=== PATIENT | male | born 1980 | race Caucasian/White ===

== ENCOUNTER 2023-06-18 10:40 | Emergency (ER) | payer BC, MEDICAID, SELFPAY ==
[2023-06-18 10:44] VITALS: BP 152/84; PULSE 87; RESP 16; TEMP 36.6; O2SAT 95
--- NOTE | 2023-06-18 10:56 | ECG_ITS ---
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 Measurements Intervals [place] Rate: 66 P: 53 [place]: 159 QRS: 32 QRSD: 97 T: 2 QT: 379 QTc: 398 Interpretive Statements SINUS RHYTHM No previous ECG available for comparison Electronically Signed On 06-18-2023 17:00:43 CDT by Michele Wan M.D. [id number]
--- NOTE | 2023-06-18 11:59 | CT_ITS ---
WS: [id number] CT HEAD TECHNIQUE: Noncontrast CT of the head obtained from the skullbase to the vertex. CLINICAL INFORMATION: dizziness COMPARISON: None. DLP: 1158.[address] scans at [facility] use at least one of these dose optimization techniques: automated e xposure control; mA and/or kV adjustment per patient size (includes targeted exams where dose is matc hed to clinical indication); or iterative reconstruction. FINDINGS: No evidence of intracranial hemorrhage or mass effect. Ventricular system and basal cisterns are sousa nt. No extra-axial fluid collections. No evidence of mass or mass effect. Normal triana-white different iation. Paranasal sinuses and mastoid air cells are well aerated. .Normal visualized soft tissues. IMPRESSION: 1. No evidence of intracranial hemorrhage or mass effect. 2. No acute intracranial findings.
--- NOTE | 2023-06-18 12:01 | W.ED.NAVMDI ---
HPI - Nausea/Vomiting/Diarrhea General: Chief complaint: Nausea/Vomiting/Diarrhea Stated complaint: N/V, light headed Time Seen by Provider: 06/18/23 11:41 Source: patient Mode of arrival: ambulatory Limitations: no limitations History of Present Illness: 43-year-old male states he has been having some dizziness and nausea since Wednesday he was seen at [facility] ER was diagnosed with tooth infection started on Augmentin states he started having vomiting and diarrhea of the Augmentin stopped yesterday states he still had some lightheadedness and just not feeling well. 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 Associated nausea: Yes Associated symtoms: Reports nausea; Denies chest pain, dysuria or headache(s) Review of Systems Const: Denies: fever(s), chills, body aches or change in appetite Eyes: Denies: blurry vision or eye discomfort ENMT: Denies: throat pain or dental pain Card: Denies: chest pain Resp: Denies: dyspnea GI: Reports: nausea and vomiting; Denies: abdominal pain or diarrhea : Denies: dysuria Musc: Denies: neck pain or back pain Skin/Breast: Denies: rash Neuro: Denies: headache(s) PFSH ED PFSH: Medical History Hypothyroidism Alice's disease Surgical History No history of previous surgery Family History Grandfather Diabetes Father No problems noted. Family/Other Hypothyroidism Social History Smoking and tobacco/nicotine status: heavy tobacco/nicotine user smokeless tobacco Smokeless tobacco user: chewing tobacco Smokeless tobacco details: 3/4 a can a day Second hand smoke exposure: Yes Alcohol intake: current Alcohol type: beer Additional social history: chews 1 can of tobacco a day Physical Exam Const: COMMON NORMALS: no acute distress, patient oriented x3 and healthy appearing HENMT: COMMON NORMALS: normocephalic and atraumatic HEAD & SCALP: normocephalic and atraumatic Eye: COMMON NORMALS: Equal, round and reactive pupils present and EOMs intact bilaterally PUPIL: Yes Equal, round and reactive pupils present Neck/C-Spine: COMMON NORMALS: full ROM and supple Chest: COMMONS NORMALS: normal inspection of the chest and normal palpation of entire chest wall Resp: COMMON NORMALS: normal respiratory effort, No retractions, No use of accessory muscles and clear to auscultation bilaterally AUSCULTATION: clear to auscultation bilaterally Cardio: COMMON NORMALS: regular rate, regular rhythm and No murmurs present (Cardio) RATE: regular rate RHYTHM: regular rhythm GI: COMMON NORMALS: Normal to inspection, nondistended, normoactive bowel sounds present, Soft to palpation, non-tender and no masses PALPATION: Yes Soft to palpation Extremity: COMMON NORMALS: normal to inspection and full ROM Neuro: COMMON NORMALS: patient oriented x3, moves all extremities and no focal motor deficits Psych: COMMON NORMALS: mental status grossly normal, Normal thought process present and cooperative THOUGHT PROCESS: Normal thought process present Skin: COMMON NORMALS: no rashes or lesions noted and no wounds GENERAL SKIN EXAM: no rashes or lesions noted Course Vital Signs: Vital signs: Vital Signs Temperature 97.9 F 06/18/23 10:44 Pulse Rate 82 06/18/23 13:27 Respiratory Rate 16 06/18/23 10:44 Blood Pressure 127/85 06/18/23 13:27 Pulse Oximetry 98 06/18/23 13:27 Oxygen Delivery Me thod Room Air 06/18/23 13:13 MDM - Nausea/Vomiting/Diarrhea Medical Decision Making Patient presents here with vomiting diarrhea also had some dizziness he is well-appearing here head CT is normal blood works normal placement Zofran he is to stop his Augmentin we will start him on Keflex for his dental infection follow-up with PCP return if worsening he understands agrees plan Medical Records I reviewed the patient's medical records. Lab Data I reviewed the patient's lab results. 06/18/23 12:43 06/18/23 11:37 Laboratory Results WBC 11.62 10^3/uL (3.29-11.43) H 06/18/23 12:43 Corrected WBC Cancelled 06/18/23 11:37 RBC 5.16 10^6/uL (3.85-5.65) 06/18/23 12:43 Hgb 15.00 g/dL (11.27-16.99) 06/18/23 12:43 Hct 45.8 % (37-53) 06/18/23 12:43 MCV 88.8 fl (82-101) 06/18/23 12:43 MCH 29.1 pg (27-33) 06/18/23 12:43 MCHC 32.8 g/dL (30-55) 06/18/23 12:43 RDW 12.4 % (12.1-15.1) 06/18/23 12:43 Plt Count 311 10^3/cmm (157-399) 06/18/23 12:43 MPV 10.0 fL (7.4-10.4) 06/18/23 12:43 Gran % Cancelled 06/18/23 11:37 Neut % (Auto) 77.9 % 06/18/23 12:43 Lymph % (Auto) 15.1 % 06/18/23 12:43 [place] % (Auto) 5.1 % 06/18/23 12:43 Eos % (Auto) 1.2 % 06/18/23 12:43 Baso % (Auto) 0.4 % 06/18/23 12:43 Neut # (Auto) 9.04 10^3/uL (1.8-7.7) H 06/18/23 12:43 Lymph # (Auto) 1.8 10^3/uL (0.8-4.8) 06/18/23 12:43 [place] # (Auto) 0.6 10^3/uL (0.2-0.9) 06/18/23 12:43 Eos # (Auto) 0.1 10^3/uL (0.0-0.8) 06/18/23 12:43 Baso # (Auto) 0.1 10^3/uL (0.0-0.1) 06/18/23 12:43 Absolute Gran (auto) Cancelled 06/18/23 11:37 Nucleated RBC % (auto) 0 % 06/18/23 12:43 Nucleated RBCs # 0.0 /100WBC 06/18/23 12:43 Sodium 140 mmol/L (136-145) 06/18/23 11:37 Potassium 4.1 mmol/L (3.5-5.1) 06/18/23 11:37 Chloride 105 mmol/L (98-107) 06/18/23 11:37 Carbon Dioxide 26 mmol/L (22-29) 06/18/23 11:37 Anion Gap 13.1 (5-19) 06/18/23 11:37 BUN 15 mg/dL (6-20) 06/18/23 11:37 Creatinine 0.8 mg/dL (0.7-1.2) 06/18/23 11:37 GFR Calculation 104.5 mL/min (90-130) 06/18/23 11:37 Glucose 99 mg/dL (65-115) 06/18/23 11:37 Calculated Osmolality 291 mOsm/kg (285-295) 06/18/23 11:37 Calcium 9.6 mg/dL (8.5-10.5) 06/18/23 11:37 Total Bilirubin 0.9 mg/dL (0.15-1.2) 06/18/23 11:37 AST 18 U/L (0-40) 06/18/23 11:37 ALT 14 U/L (0-41) 06/18/23 11:37 Alkaline Phosphatase 88 U/L (40-130) 06/18/23 11:37 Total Protein 7.8 g/dL (6.6-8.7) 06/18/23 11:37 Albumin 4.9 g/dL (3.5-5.2) 06/18/23 11:37 Globulin 2.9 g/dL (1.3-4.6) 06/18/23 11:37 Lipase 20 U/L (13-60) 06/18/23 11:37 All radiology interpretation(s) finalized by discharge EKG Data EKG 1: I personally reviewed and interpreted this EKG as follows: EKG interpretation date: 06/18/23 EKG interpretation time: 12:11 Interpretation: nsr hr [address] or t wave abnormalities qrs 97 qtc 392 Discharge Plan Discharge Patient Disposition: Home Clinical Impression: Vomiting, Toothache Condition: Stable Prescriptions: New cephalexin 500 mg capsule 500 mg PO TID 7 Days Qty: 21 0RF ondansetron 4 mg tablet,disintegrating 4 mg PO Q6H PRN (Reason: nausea and vomiting) Qty: 14 0RF No Action valsartan 80 mg tablet 80 mg PO QAM amoxicillin-pot clavulanate 875-125 mg tablet 1 tab PO BID Rx Instructions: for 10 days (rx filled 06/15/23) Discharge Orders: Discharge ED (Routine); Ordered 06/18/23 Ordered By: Scooter Bolaños Referrals: Marielos Linder DO [Primary Care Provider] - 1-3 days Discharge Diet: Advance as tolerated Discharge Activity: Resume usual activity Patient Instructions: Acute Nausea and Vomiting (ED) Coding Level of Care Code 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
[2023-06-18 12:05] LABS: Alanine Aminotransferase 14 U/L (0-41); Albumin Level 4.9 g/dL (3.5-5.2); Alkaline Phosphatase 88 U/L (40-130); Anion Gap 13.1 (5-19); Aspartate Amino Transferase 18 U/L (0-40); Blood Urea Nitrogen 15 mg/dL (6-20); Calcium 9.6 mg/dL (8.5-10.5); Carbon Dioxide 26 mmol/L (22-29); Chloride 105 mmol/L (98-107); Creatinine Clr Calc Pharmacy 131.8527; Globulin 2.9 g/dL (1.3-4.6); Glomerular Filtration Rate 104.5 mL/min (90-130); Glucose 99 mg/dL (65-115); Lipase 20 U/L (13-60); Osmolality Calculated 291 mOsm/kg (285-295); Potassium 4.1 mmol/L (3.5-5.1); Sodium 140 mmol/L (136-145); Total Bilirubin 0.9 mg/dL (0.15-1.2); Total Protein 7.8 g/dL (6.6-8.7)
--- NOTE | 2023-06-18 12:20 | PC.PHAR ---
pt states he takes care of his own medications-pt states he stop taking his augmentin 875-125mg bid on wed06/16/23 rx filled 06/15/23 10d/s-pt states he takes no otc meds
[2023-06-18] MEDS: sodium chloride 0.9% 1,000 ML 999 ML IV (12:35)
[2023-06-18 13:00] LABS: Basophils # 0.1 10^3/uL (0.0-0.1); Basophils % 0.4 %; Eosinophils # 0.1 10^3/uL (0.0-0.8); Eosinophils % 1.2 %; Hematocrit 45.8 % (37-53); Lymphocytes # 1.8 10^3/uL (0.8-4.8); Lymphocytes % 15.1 %; Mean Corpuscular HGB Conc 32.8 g/dL (30-55); Mean Corpuscular Hemoglobin 29.1 pg (27-33); Mean Corpuscular Volume 88.8 fl (82-101); Monocytes # 0.6 10^3/uL (0.2-0.9); Monocytes % 5.1 %; Neutrophils # 9.04 10^3/uL (1.8-7.7); Neutrophils % 77.9 %; Nucleated Red Blood Cells % 0 %; Platelet Count 311 10^3/cmm (157-399); Red Blood Count 5.16 10^6/uL (3.85-5.65); Red Cell Distribution Width 12.4 % (12.1-15.1); White Blood Count 11.62 10^3/uL (3.29-11.43)
[2023-06-18 13:13] VITALS: BP 135/86; PULSE 88; O2SAT 97
[2023-06-18 13:27] VITALS: BP 127/85; PULSE 82; O2SAT 98
== END 2023-06-18 13:28 | disposition home or self-care (01) ==
PROVIDERS: Emergency Provider Emergency Medicine; PCP Family Medicine
DX: R11.11 Vomiting without nausea (principal); K08.89 Other specified disorders of teeth and supporting structures; F17.220 Nicotine dependence, chewing tobacco, uncomplicated
CPT/HCPCS: 36415; 70450; 80053; 83690; 85025; 93005; 96360; 99285; J7030

== ENCOUNTER 2024-01-15 09:50 | Emergency (ER) | payer OTHER, SELFPAY ==
[2024-01-15 09:57] VITALS: BP 165/108; PULSE 79; RESP 17; TEMP 36.9; O2SAT 97; BMI 27.3
--- NOTE | 2024-01-15 10:13 | XRR_ITS ---
PROCEDURE INFORMATION: Exam: XR Chest Exam date and time: 01/15/2024 11:02 AM Age: 43 years old Clinical indication: Pain; Chest pressure; Patient HX: PT states the last couple days PT states he has been anxious and on edge. PT states a doctor tried to put him on medication for anxiety before but he had side effects. PT states he feels like his whole body wants to clench up. ; Additional info: Cp TECHNIQUE: Imaging protocol: Radiologic exam of the chest. Views: 1 view. COMPARISON: No relevant prior studies available. FINDINGS: Lungs: Lungs are clear bilaterally. Pleural spaces: No pleural effusion. No pneumothorax. Heart/Mediastinum: The cardiac silhouette and mediastinal contours are unremarkable. Bones/joints: Unremarkable for age. XR/XR chest 1V portable [id number] IMPRESSION: Negative chest radiograph.
--- NOTE | 2024-01-15 10:13 | ECG_ITS ---
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 Measurements Intervals [place] Rate: 69 P: 63 [place]: 162 QRS: 67 QRSD: 96 T: 0 QT: 381 QTc: 411 Interpretive Statements SINUS RHYTHM Compared to ECG 06/18/2023 12:11:45 No significant changes Electronically Signed On 01-15-2024 14:00:35 CHIEF CARDIOPULMONARY TECHNOLOGIST by Michele Wan M.D. [id number]
--- NOTE | 2024-01-15 10:52 | ED_ITS ---
HPI - Anxiety 2 General: Chief Complaint: Anxiety Stated Complaint: stress, possible anxiety, overall not feeling well Time Seen by Provider: 01/15/24 09:55 Source: patient Mode of arrival: ambulatory Limitations: no limitations History of Present Illness: 43-year-old male states he been under a lot of stress and having anxiety over the last 2 days he states his doctor tried him on a medication but states it did not work. He states this morning he has been having he states what feels like panic attack states his full body else clenched up he is having palpitation shortness of breath chest pain he states that he feels improved currently denies any fever denies any cough Associated symptoms: Reports chest pain; Deny chills, fever(s), headache(s), nausea or vomiting Related Data Home Medications Medication Instructions Recorded Confirmed No Known Home Medications 01/15/24 01/15/24 Allergies Allergy/AdvReac Type Severity Reaction Status Date / Time Sulfa (Sulfonamide Allergy hives Verified 06/18/23 10:49 Antibiotics) venlafaxine [From Effexor] Allergy mood change Verified 06/18/23 10:49 Review of Systems 2 Const: Denies: fever(s), chills, body aches or change in appetite ENMT: Denies: throat pain or dental pain Card: Reports: chest pain Resp: Reports: dyspnea GI: Denies: abdominal pain, nausea, vomiting or diarrhea Musc: Denies: neck pain or back pain Skin/Breast: Denies: rash Neuro: Denies: headache(s) PFSH ED 2 PFSH: Medical History Hypothyroidism Alice's disease Surgical History No history of previous surgery Family History Grandfather Diabetes Father No problems noted. Family/Other Hypothyroidism Social History Smoking and tobacco/nicotine status: heavy tobacco/nicotine user smokeless tobacco Smokeless tobacco user: chewing tobacco Smokeless tobacco details: 3/4 a can a day Second hand smoke exposure: Yes Alcohol intake: current Alcohol type: beer Additional social history: chews 1 can of tobacco a day Physical Exam 2 Const: COMMON NORMALS: no acute distress, patient oriented x3 and healthy appearing HENMT: COMMON NORMALS: normocephalic and atraumatic HEAD & SCALP: n ormocephalic and atraumatic Eye: COMMON NORMALS: Equal, round and reactive pupils present and EOMs intact bilaterally PUPIL: Yes Equal, round and reactive pupils present Neck/C-Spine: COMMON NORMALS: full ROM and supple Chest: COMMONS NORMALS: normal inspection of the chest and normal palpation of entire chest wall Resp: COMMON NORMALS: normal respiratory effort, No retractions, No use of accessory muscles and clear to auscultation bilaterally AUSCULTATION: clear to auscultation bilaterally Cardio: COMMON NORMALS: regular rate, regular rhythm and No murmurs present (Cardio) RATE: regular rate RHYTHM: regular rhythm GI: COMMON NORMALS: Normal to inspection, nondistended, normoactive bowel sounds present, Soft to palpation, non-tender and no masses PALPATION: Yes Soft to palpation Extremity: COMMON NORMALS: normal to inspection and full ROM Neuro: COMMON NORMALS: patient oriented x3, moves all extremities and no focal motor deficits Psych: COMMON NORMALS: mental status grossly normal, Normal thought process present and cooperative THOUGHT PROCESS: Normal thought process present Skin: COMMON NORMALS: no rashes or lesions noted and no wounds GENERAL SKIN EXAM: no rashes or lesions noted Course 2 Vital Signs: Vital signs: Vital Signs Temperature 98.4 F 01/15/24 09:57 Pulse Rate 62 01/15/24 11:59 Respiratory Rate 17 01/15/24 09:57 Blood Pressure 124/95 01/15/24 11:59 Pulse Oximetry 96 01/15/24 11:59 Oxygen Delivery Me thod Room Air 01/15/24 11:59 MDM - Anxiety Medical Decision Making Patient presents for chest pain likely from anxiety he is well-appearing here initial repeat troponins are normal no sign of ACS or pulm embolism he stable for discharge. Medical Records I reviewed the patient's medical records. Lab Data I reviewed the patient's lab results. 01/15/24 10:31 01/15/24 10:31 Radiology Impressions Chest X-Ray 01/15/24 10:13 IMPRESSION: Negative chest radiograph. Laboratory Results WBC 6.24 10^3/uL (3.29-11.43) 01/15/24 10:31 RBC 5.72 10^6/uL (3.85-5.65) H 01/15/24 10:31 Hgb 16.40 g/dL (11.27-16.99) 01/15/24 10:31 Hct 48.8 % (37-53) 01/15/24 10:31 MCV 85.3 fl (82-101) 01/15/24 10:31 MCH 28.7 pg (27-33) 01/15/24 10:31 MCHC 33.6 g/dL (30-55) 01/15/24 10:31 RDW 12.2 % (12.1-15.1) 01/15/24 10:31 Plt Count 351 10^3/cmm (157-399) 01/15/24 10:31 MPV 10.7 fL (7.4-10.4) H 01/15/24 10:31 Neut % (Auto) 66.5 % 01/15/24 10:31 Lymph % (Auto) 22.9 % 01/15/24 10:31 [place] % (Auto) 7.5 % 01/15/24 10:31 Eos % (Auto) 2.2 % 01/15/24 10:31 Baso % (Auto) 0.6 % 01/15/24 10:31 Neut # (Auto) 4.14 10^3/uL (1.8-7.7) 01/15/24 10:31 Lymph # (Auto) 1.4 10^3/uL (0.8-4.8) 01/15/24 10:31 [place] # (Auto) 0.5 10^3/uL (0.2-0.9) 01/15/24 10:31 Eos # (Auto) 0.1 10^3/uL (0.0-0.8) 01/15/24 10:31 Baso # (Auto) 0.0 10^3/uL (0.0-0.1) 01/15/24 10:31 Nucleated RBC % (auto) 0 % 01/15/24 10:31 Nucleated RBCs # 0.0 /100WBC 01/15/24 10:31 Sodium 142 mmol/L (136-145) 01/15/24 10:31 Potassium 3.9 mmol/L (3.5-5.1) 01/15/24 10:31 Chloride 103 mmol/L (98-107) 01/15/24 10:31 Carbon Dioxide 26 mmol/L (22-29) 01/15/24 10:31 Anion Gap 16.9 (5-19) 01/15/24 10:31 BUN 11 mg/dL (6-20) 01/15/24 10:31 Creatinine 0.8 mg/dL (0.7-1.2) 01/15/24 10:31 GFR Calculation 104.5 mL/min (90-130) 01/15/24 10:31 Glucose 97 mg/dL (65-115) 01/15/24 10:31 Calculated Osmolality 293 mOsm/kg (285-295) 01/15/24 10:31 Calcium 9.7 mg/dL (8.5-10.5) 01/15/24 10:31 Troponin T Baseline 7 ng/L (0-15) 01/15/24 10:31 Troponin T 120 Minute 6.00 ng/L (0-15) 01/15/24 12:31 Delta Troponin T -1.00 ABS# (0-10) L 01/15/24 12:31 All radiology interpretation(s) finalized by discharge EKG Data EKG 1: I personally reviewed and interpreted this EKG as follows: EKG interpretation date: 01/15/24 EKG interpretation time: 10:31 Interpretation: Chest X-Ray 01/15/24 10:13 IMPRESSION: Negative chest radiograph. nsr hr [address] or t wave abnormalities qrs 96 qtc 401 Other EKG comments: Chest X-Ray 01/15/24 10:13 IMPRESSION: Negative chest radiograph. Discharge Plan Discharge Patient Disposition: Home Clinical Impression: Acute anxiety, Chest pain Condition: Stable Prescriptions: No Action No Known Home Medications Discharge Orders: Discharge ED (Routine); Ordered 01/15/24 Ordered By: Scooter Bolaños Referrals: Marielos Linder DO [Primary Care Provider] - 4-7 days Discharge Diet: Advance as tolerated Discharge Activity: Resume usual activity Patient Instructions: Anxiety (ED) Coding Level of Care Code ED Direct Care Staffer for Chg Nick
[2024-01-15 11:01] LABS: Troponin(5th) Baseline 7 ng/L (0-15)
[2024-01-15 11:38] LABS: Basophils % 0.6 %; Eosinophils # 0.1 10^3/uL (0.0-0.8); Eosinophils % 2.2 %; Hematocrit 48.8 % (37-53); Lymphocytes # 1.4 10^3/uL (0.8-4.8); Lymphocytes % 22.9 %; Mean Corpuscular HGB Conc 33.6 g/dL (30-55); Mean Corpuscular Hemoglobin 28.7 pg (27-33); Mean Corpuscular Volume 85.3 fl (82-101); Mean Platelet Volume 10.7 fL (7.4-10.4); Monocytes # 0.5 10^3/uL (0.2-0.9); Monocytes % 7.5 %; Neutrophils # 4.14 10^3/uL (1.8-7.7); Neutrophils % 66.5 %; Nucleated Red Blood Cells % 0 %; Platelet Count 351 10^3/cmm (157-399); Red Blood Count 5.72 10^6/uL (3.85-5.65); Red Cell Distribution Width 12.2 % (12.1-15.1); White Blood Count 6.24 10^3/uL (3.29-11.43)
[2024-01-15 11:50] LABS: Anion Gap 16.9 (5-19); Blood Urea Nitrogen 11 mg/dL (6-20); Calcium 9.7 mg/dL (8.5-10.5); Carbon Dioxide 26 mmol/L (22-29); Chloride 103 mmol/L (98-107); Creatinine Clr Calc Pharmacy 137.2394; Glomerular Filtration Rate 104.5 mL/min (90-130); Glucose 97 mg/dL (65-115); Osmolality Calculated 293 mOsm/kg (285-295); Potassium 3.9 mmol/L (3.5-5.1); Sodium 142 mmol/L (136-145)
[2024-01-15 11:59] VITALS: BP 124/95; PULSE 62; O2SAT 96
--- NOTE | 2024-01-15 12:13 | ECG_ITS ---
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 Measurements Intervals [place] Rate: 64 P: 48 [place]: 162 QRS: 74 QRSD: 96 T: -13 QT: 405 QTc: 420 Interpretive Statements SINUS RHYTHM NONSPECIFIC T-WAVE ABNORMALITY Compared to ECG 01/15/2024 10:31:46 T-wave abnormality now present Electronically Signed On 01-15-2024 16:09:02 ALTERATION TAILOR APPRENTICE by Michele Wna M.D. [id number]
[2024-01-15 13:23] VITALS: BP 137/90; PULSE 68; O2SAT 97
== END 2024-01-15 13:24 | disposition home or self-care (01) ==
PROVIDERS: Emergency Provider Emergency Medicine; PCP Family Medicine
DX: F41.8 Other specified anxiety disorders (principal); R07.9 Chest pain, unspecified; F17.220 Nicotine dependence, chewing tobacco, uncomplicated
CPT/HCPCS: 36415; 71045; 80048; 84484; 85025; 93005; 99285